=== PATIENT | female | born 1970 | race Caucasian/White ===

== ENCOUNTER → 2020-04-12 | Outpatient (CLI) | payer OTHER | LOC: M.RAD 12:51 | PROVIDERS: ATTEND Orthopaedic Surgery | DX: M47.815 Spondylosis without myelopathy or radiculopathy, thoracolumbar region (principal); M47.812 Spondylosis without myelopathy or radiculopathy, cervical region; M48.07 Spinal stenosis, lumbosacral region; M43.17 Spondylolisthesis, lumbosacral region ==